=== PATIENT | male | born 2000 | race Caucasian/White ===

== ENCOUNTER 2025-01-16 12:51 | Outpatient (CLI) | payer BC, SELFPAY ==
[2025-01-16 20:51] LABS: Hematocrit 43.6 % (42.0-52.0); Hemoglobin 14.9 g/dL (14.1-18.0); Immature Granulocytes % 0.5 %; Mean Corpuscular HGB Conc 34.2 g/dL (31.8-35.4); Mean Corpuscular Hemoglobin 29.8 pg (27.0-31.2); Mean Corpuscular Volume 87.2 fl (80-94); Nucleated Red Blood Cells % 0 %; Platelet Count 307 K/mm3 (142-424); Red Blood Count 5.00 M/mm3 (4.60-6.20); Red Cell Distribution Width-SD 36.6 fL; White Blood Count 8.2 K/mm3 (4.8-10.8)
[2025-01-16 21:25] LABS: Alanine Aminotransferase 53 U/L (12-78); Albumin Level 4.7 g/dl (3.5-5.0); Albumin/Globulin Ratio 1.7 (1.1-1.8); Alkaline Phosphatase 68 U/L (38-126); Anion Gap 17.5 mEq/L (5-15); Aspartate Amino Transferase 37 U/L (17-59); Bilirubin,Total 0.5 mg/dl (0.2-1.3); Blood Urea Nitrogen 20 mg/dl (9-20); Calcium 9.6 mg/dl (8.4-10.2); Carbon Dioxide 26 mmol/L (22.0-30.0); Chloride 104 mmol/L (98-107); Cholesterol 138 mg/dl (140-200); Creatinine,Serum 1.30 mg/dl (0.66-1.25); Estimated Glomerular Filt Rate 69 ml/min (>60); GFR (African American) 84 ML/MIN (>60); Globulin 2.7 g/dL (1.3-3.2); Glucose 70 mg/dl (74-100); HDL Cholesterol 56 mg/dl (40-60); Potassium 4.5 mmoL/L (3.5-5.1); Sodium 143 mmol/L (136-145); Total Protein,Serum 7.4 g/dl (6.3-8.2); Triglycerides 159 mg/dl (30-150)
[2025-01-16 22:05] LABS: Free T4 (Free Thyroxine) 1.06 ng/dl (0.78-2.19)
[2025-01-16 22:14] LABS: Thyroid Stimulating Hormone 0.60 uIU/mL (0.465-4.68)
== END 2025-01-16 23:59 | disposition home or self-care (01) ==
LOC: LAB.DROPOF 01-18 12:52
PROVIDERS: PCP Student in an Organized Health Care Education/Training Program; Visit Provider Student in an Organized Health Care Education/Training Program
DX: F41.9 Anxiety disorder, unspecified (principal); G47.33 Obstructive sleep apnea (adult) (pediatric); R53.83 Other fatigue; R07.9 Chest pain, unspecified
CPT/HCPCS: 80053; 80061; 84439; 84443; 85025